=== PATIENT | female | born 1955 | race Caucasian/White ===

== ENCOUNTER 2020-10-30 13:41 | Outpatient (RCR) | payer MEDICARE, OTHER ==
[2020-11-01] MEDS ORDERED: LEVO175C2 PO (12:19)
[2020-11-01] MEDS ORDERED: ATOR20TA66 PO (12:20)
[2020-11-01] MEDS ORDERED: FLUO40CA PO (12:20)
[2020-11-01] MEDS ORDERED: LISI20TA26 PO (12:21)
[2020-11-01] MEDS ORDERED: OXYB5TAB13 PO (12:22)
[2020-11-02] MEDS ORDERED: METF-397 PO (12:46)
[2020-11-02] MEDS ORDERED: AMLO-251 PO (12:46)
[2020-11-02] MEDS ORDERED: ASPI-1238 PO (12:46)
[2020-11-02] MEDS ORDERED: ATOR80TA76 PO (12:46)
== END 2020-10-30 15:28 | disposition home or self-care (01) ==
PROVIDERS: ATTEND Orthopaedic Surgery
DX: Z47.89 Encounter for other orthopedic aftercare (principal); E11.9 Type 2 diabetes mellitus without complications; Z96.661 Presence of right artificial ankle joint

== ENCOUNTER 2020-11-01 06:22 | Observation (INO) | payer MEDICARE, OTHER ==
[2020-11-01] VITALS (9 sets, daily range): BP systolic 107–189; BP diastolic 83–115
[~2020-11-01] VITALS: Ht 165 cm; Wt 110.4 kg
--- NOTE | 2020-11-01 06:53 | ED Chest Pain ---
General Chief Complaint: Chest Pain Stated Complaint: STERNUM PAIN Source: patient Exam Limitations: no limitations History of Present Illness Date Seen by Provider: Nov 01, 2020 Time Seen by Provider: 06:35 Initial Comments Patient is a 65-year-old female who presents to the emergency department today with a chief complaint of midsternal/substernal chest pain. Patient states she woke up with the pain at approximately 545 this morning. She states she became nauseated with the pain and is currently rating it at a "8". Patient states that the pain did not radiate. She did not have shortness of breath or diaphoresis at the onset of the pain. She has never had anything like this before. Patient states that she has been out of her daily medications for about 2 weeks secondary to affordability. Patient states that she takes lisinopril for blood pressure as well as medications possibly for cholesterol and diabetes and thyroid issues. Patient states that she is down here in [facility] taking care of her ill mother. She states she was planning on going home and seeing her primary care physician on Tuesday or Tuesday. Patient denies any recent illnesses such as fevers chills, cough congestion or any Covid c omplaints. Patient is currently not nauseated. All other review of systems reviewed and negative except as stated. Timing/Duration: 1 hour Severity/Quality: moderate, aching Location: substernal Radiation: no radiation Activities at Onset: none, rest Prior CP/Workup: no prior chest pain, no prior cardiac workup ASA po PROJECT LEADER: No NTG SL PROJECT LEADER: No Associated Symptoms: nausea/vomiting Allergies and Home Medications Allergies Coded Allergies: No Known Drug Allergies (Unverified , 11/01/20) Home Medications Lisinopril 20 Mg Tablet, 20 MG PO DAILY, (Reported) Metformin HCl 500 Mg Tablet, 500 MG PO DAILY, (Reported) Oxybutynin Chloride 5 Mg Tablet, 5 MG PO BID, (Reported) Patient Home Medication List Home Medication List Reviewed: Yes Review of Systems Review of Systems Constitutional: see HPI EENTM: No Symptoms Reported Respiratory: No Symptoms Reported Cardiovascular: Chest Pain Gastrointestinal: Nausea Genitourinary: No Symptoms Reported Musculoskeletal: no symptoms reported Skin: no symptoms reported Psychiatric/Neurological: No Symptoms Reported All Other Systems Reviewed Negative Unless Noted: Yes Past Fuzvgsf-Rbuttt-Htttsl Hx Patient Social History Alcohol Use: Denies Use Smoking Status: Never a Smoker Recent Hopitalizations: No Seasonal Allergies Seasonal Allergies: No Past Medical History Surgeries: Yes Orthopedic Respiratory: No Cardiac: Yes High Cholesterol, Hypertension Neurological: No Genitourinary: No Gastrointestinal: No Musculoskeletal: No Endocrine: Yes Hypothyroidsim, Diabetes, Non-Insulin dep HEENT: No Cancer: No Psychosocial: No Integumentary: No Physical Exam Vital Signs Vital Signs - First Documented Capillary Refill : Less Than 3 Seconds Height, Weight, BMI Height: '" Weight: lbs. oz. kg; BMI Method: General Appearance: No Apparent Distress, WD/WN HEENT: PERRL/EOMI Neck: Normal Inspection Respiratory: Lungs Clear, Normal Breath Sounds, No Accessory Muscle Use, No Respiratory Distress Cardiovascular: Regular Rate, Rhythm, No Murmur Gastrointestinal: Normal Bowel Sounds, Soft, Tenderness (Patient had a little bit of tenderness on palpation of the right upper quadrant) Extremity: Normal Capillary Refill, Normal Inspection, Normal Range of Motion, Non Tender, No Pedal Edema Neurologic/Psychiatric: Alert, Oriented x3, No Motor/Sensory Deficits, Normal Mood/Affect, child care cook II-XII Norm as Tested Skin: Normal Color, Warm/Dry Progress/Results/Core Measures Results/Orders Lab Results Laboratory Tests Test 11/01/20 06:51 11/01/20 09:43 Range/Units White Blood Count 7.0 4.3-11.0 10^3/uL Red Blood Count 4.37 3.80-5.11 10^6/uL Hemoglobin 12.4 11.5-16.0 g/dL Hematocrit 39 35-52 % Mean Corpuscular Volume 89 80-99 fL Mean Corpuscular Hemoglobin 28 25-34 pg Mean Corpuscular Hemoglobin Concent 32 32-36 g/dL Red Cell Distribution Width 14.1 10.0-14.5 % Platelet Count 292 130-400 10^3/uL Mean Platelet Volume 10.5 9.0-12.2 fL Immature Granulocyte % (Auto) 0 % Neutrophils (%) (Auto) 63 42-75 % Lymphocytes (%) (Auto) 25 12-44 % Monocytes (%) (Auto) 7 0-12 % Eosinophils (%) (Auto) 3 0-10 % Basophils (%) (Auto) 1 0-10 % Neutrophils # (Auto) 4.5 1.8-7.8 10^3/uL Lymphocytes # (Auto) 1.8 1.0-4.0 10^3/uL Monocytes # (Auto) 0.5 0.0-1.0 10^3/uL Eosinophils # (Auto) 0.2 0.0-0.3 10^3/uL Basophils # (Auto) 0.1 0.0-0.1 10^3/uL Immature Granulocyte # (Auto) 0.0 0.0-0.1 10^3/uL Prothrombin Time 12.7 12.2-14.7 SEC INR Comment 0.9 0.8-1.4 Activated Partial Thromboplast Time 30 24-35 SEC Sodium Level 138 135-145 MMOL/L Potassium Level 4.1 3.6-5.0 MMOL/L Chloride Level 105 98-107 MMOL/L Carbon Dioxide Level 21 21-32 MMOL/L Anion Gap 12 5-14 MMOL/L Blood Urea Nitrogen 15 7-18 MG/DL Creatinine 1.14 0.60-1.30 MG/DL Estimat Glomerular Filtration Rate 48 BUN/Creatinine Ratio 13 Glucose Level 144 H 70-105 MG/DL Calcium Level 8.4 L 8.5-10.1 MG/DL Total Creatine Kinase 45 29-168 U/L Creatine Kinase MB 0.5 <6.6 NG/ML Troponin I < 0.028 < 0.028 <0.028 NG/ML My Orders Orders - ISAIAS NOVAK MD Cbc With Automated Diff (11/01/20 06:46) Basic Metabolic Panel (11/01/20 06:46) Creatine Kinase (11/01/20 06:46) Creatine Kinase Mb (11/01/20 06:46) Troponin I (11/01/20 06:46) Protime With Inr (11/01/20 06:46) Partial Thromboplastin Time (11/01/20 06:46) Ekg Tracing (11/01/20 06:46) Chest 1 View, Ap/Pa Only (11/01/20 06:46) Ed Iv/Invasive Line Start (11/01/20 06:46) Aspirin Chewable Tablet (Baby Aspirin Ch (11/01/20 09:00) Fentanyl Inj (Sublimaze Injection) (11/01/20 07:00) Ekg Tracing (11/01/20 07:38) Fentanyl Inj (Sublimaze Injection) (11/01/20 08:30) Troponin I (11/01/20 09:43) Furosemide Injection (Lasix Injection) (11/01/20 10:30) Potassium Chloride (Tablet) (Klor Con Ta (11/01/20 10:30) Amlodipine Tablet (Norvasc Tablet) (11/01/20 10:30) Medications Given in ED Vital Signs/I&O 11/01/20 11/01/20 06:44 06:44 Pulse 58 Resp 18 B/P (MAP) 189/106 (133) Pulse Ox 97 O2 Delivery Room Air Room Air Initial ECG Impression Date: Nov 01, 2020 Initial ECG Impression Time: 06:35 Initial ECG Rate: 58 Initial ECG Rhythm: Normal Sinus Initial ECG Intervals: Normal Initial ECG Impression: Nonspecific Changes Initial ECG Comparisson: No Previous ECG Available Comment NSSTW changes inferiorly and anteriorly EKG : EKG Time: 08:15 Rate: 51 Rhythm: Normal Sinus Intervals: Normal ECG Comparisson: Changed Comment t wave inversion inferior anterior with ST flattening Departure Communication (Admissions) Time/Spoke to Admitting Phy: 10:[address] An, asked that I consult cardiology Time/Spoke to Consulting Phy: 10:[address] Alonso on for cardiology. Recommended 40 mg of Lasix IV x1, 10 mEq of potassium p.o. and Norvasc 10 mg p.o. x1. He would like the patient admitted to cardiac stepdown floor and given a diet. Impression Primary Impression: Chest pain Qualified Codes: R07.9 - Chest pain, unspecified Additional Impressions: Hypertension Qualified Codes: I10 - Essential (primary) hypertension Congestive heart failure Qualified Codes: I50.9 - Heart failure, unspecified Disposition: ADMITTED INPATIENT Condition: Stable Admissions Decision to Admit Reason: Admit from ER (General) Decision to Admit/Date: Nov 01, 2020 Time/Decision to Admit Time: 10:33 Departure-Patient Inst. Referrals: NANNETTE VO DO (PCP) Primary Care Physician ISAIAS NOVAK MD Nov 01, 2020 06:53
[2020-11-01] MEDS ORDERED: fentaNYL INJ 100 MCG/2 ML AMP IVP ONE ×2 (07:00→08:30)
[2020-11-01 07:06] LABS: BASOPHILS # (AUTO) 0.1 10^3/uL (0.0-0.1); BASOPHILS % (AUTO) 1 % (0-10); EOSINOPHILS # (AUTO) 0.2 10^3/uL (0.0-0.3); EOSINOPHILS % (AUTO) 3 % (0-10); HEMATOCRIT 39 % (35-52); HEMOGLOBIN 12.4 g/dL (11.5-16.0); LYMPHOCYTES # (AUTO) 1.8 10^3/uL (1.0-4.0); LYMPHOCYTES % (AUTO) 25 % (12-44); MEAN CORPUSCULAR HEMOGLOBIN 28 pg (25-34); MEAN CORPUSCULAR HGB CONC 32 g/dL (32-36); MEAN CORPUSCULAR VOLUME 89 fL (80-99); MEAN PLATELET VOLUME 10.5 fL (9.0-12.2); MONOCYTES # (AUTO) 0.5 10^3/uL (0.0-1.0); MONOCYTES % (AUTO) 7 % (0-12); NEUTROPHILS # (AUTO) 4.5 10^3/uL (1.8-7.8); NEUTROPHILS % (AUTO) 63 % (42-75); PLATELET COUNT 292 10^3/uL (130-400)
[2020-11-01 07:11] LABS: INR 0.9 (0.8-1.4); PROTHROMBIN TIME PATIENT 12.7 SEC (12.2-14.7)
[2020-11-01 07:17] LABS: BUN/CREATININE RATIO 13; CALCIUM 8.4 MG/DL (8.5-10.1); CARBON DIOXIDE 21 MMOL/L (21-32); CHLORIDE 105 MMOL/L (98-107); CREATINE KINASE 45 U/L (29-168); CREATININE SERUM 1.14 MG/DL (0.60-1.30); GFR ESTIMATED 48; GLUCOSE 144 MG/DL (70-105); POTASSIUM 4.1 MMOL/L (3.6-5.0); SODIUM 138 MMOL/L (135-145)
[2020-11-01 07:23] LABS: CREATINE KINASE MB 0.5 NG/ML (<6.6)
--- NOTE | 2020-11-01 08:17 | Diagnostic Imaging Report ---
EXAMINATION: Chest 1 view HISTORY: Chest pain. COMPARISON: None available. FINDINGS: The heart size is enlarged with central pulmonary vascular congestion. Patchy opacities are seen in the mid and lower lungs bilaterally. No large pleural effusion or pneumothorax. No acute osseous abnormalities. IMPRESSION: 1. Cardiomegaly with central pulmonary vascular congestion. Patchy opacities in the mid and lower lungs bilaterally may represent edema or infection. No large pleural effusion. Dictated by: Dictated on workstation # [id number]
[2020-11-01] MEDS ORDERED: ASPIRIN 81 MG CHEW (CHILDREN'S ASA) PO SCH (09:00)
[2020-11-01] MEDS ORDERED: KCL 10 MEQ TAB (MICRO K) PO ONE (10:30)
[2020-11-01] MEDS ORDERED: amLODIPine 10 MG (NORVASC) TAB PO ONE (10:30)
[2020-11-01] MEDS ORDERED: FUROSEMIDE 40 MG/4 ML INJ (LASIX) IVP ONE (10:30)
[2020-11-01] MEDS ORDERED: ONDANSETRON 4 MG/2 ML (SDV) Z0FRAN IV PRN (11:45)
[2020-11-01] MEDS ORDERED: LEVO175C2 PO ×2 (12:19)
[2020-11-01] MEDS ORDERED: ATOR20TA66 PO ×2 (12:20)
[2020-11-01] MEDS ORDERED: FLUO40CA PO ×2 (12:20)
[2020-11-01] MEDS ORDERED: LISI20TA26 PO ×2 (12:21)
[2020-11-01] MEDS ORDERED: METF-397 PO (12:22)
[2020-11-01] MEDS ORDERED: OXYB5TAB13 PO ×2 (12:22)
--- NOTE | 2020-11-01 13:15 | Consultation-Cardiology ---
HPI-Cardiology Cardiology Consultation: Date of Consultation 11/01/20 Time Seen by a Provider: 12:50 Date of Admission Attending Physician Urvashi An MD Admitting Physician Irina Reaves DO Consulting Physician ONIEL RUDOLPH MD, MA, FACP, FACC, FSCAI, CCDS HPI: Chief Complaint: CC: Chest discomfort HPI 65 yo woman who awoke with epigastric / lower midsternal pain, localized to a small area, sharp to dull, continuous for 1/2 - 1 hour, w/o radiation, w/o associated symptoms, never experienced before, mod in intensity, w/o aggravating or relieving factors. Denies shortness of breath or palp or syncope or swelling. Denies fever or chills. States quit taking bp meds several days ago. Review of Systems-Cardiology Review of Systems Constitutional: No weight loss, No weight gain Eyes: No vision change Ears/Nose/Throat: No ear discharge, No nasal drainage, No recent hearing loss Respiratory: As described under HPI Cardiovascular: As described under HPI Gastrointestinal: No diarrhea, No nausea, No vomiting Genitourinary: No dysuria, No hematuria, No urine frequency changes Musculoskeletal: No back pain, No joint pain Skin: No rash, No ulcerations Psychiatric/Neurological: No seizure, No focal weakness, No syncope Hematologic: No bleeding abnormalities All Other Systems Reviewed Negative Unless Noted: Yes AZU-Bsbyho-Ywibvu Hx Patient Social History Smoking Status: Never a Smoker Have you traveled recently?: No Alcohol Use?: Yes Pt feels they are or have been: No Immunizations Up To Date Date of Influenza Vaccine: Jul 04, 2020 Past Medical History PMH As described under Assessment. Family Medical History Family Medical History: Does not report fam h/o early CAD or SCD Allergies and Home Medications Allergies Coded Allergies: No Known Drug Allergies (Unverified , 11/01/20) Home Medications Lisinopril 20 Mg Tablet, 20 MG PO DAILY, (Reported) Metformin HCl 500 Mg Tablet, 500 MG PO DAILY, (Reported) Oxybutynin Chloride 5 Mg Tablet, 5 MG PO BID, (Reported) Patient Home Medication List Home Medication List Reviewed: Yes Physical Exam-Cardiology Physical Exam Vital Signs/I&O 11/01/20 11/01/20 11/01/20 11/01/20 06:44 06:44 11:30 11:35 Temp 36.8 Pulse 58 53 Resp 18 17 B/P (MAP) 189/106 (133) 147/113 Pulse Ox 97 97 O2 Delivery Room Air Room Air Room Air 11/01/20 11/01/20 12:30 12:38 Pulse 58 Pulse Ox 98 O2 Delivery Room Air Capillary Refill : Less Than 3 Seconds Constitutional: AAO x 3, well-developed, well-nourished HEENT: EOMI, hearing is well preserved; No xanthelasmas are seen Neck: carotid pulses are 2 + bilaterally, with good upstrokes Respiratory: No accessory muscle use; other (good bilateral air entry) Cardiovascular: regular rate-rhythm, S1 and S2, systolic murmur (faint YAA at card base) Gastrointestinal: No tender; soft; No guarding, No rebound; audible bowel sounds Extremities: No clubbing, No cyanosis, No significant edema Neurologic/Psychiatric: oriented x 3, other (moves all limbs equally) Skin: No rash, No ulcerations Data Review Labs Laboratory Tests 11/01/20 06:51: White Blood Count 7.0, Red Blood Count 4.37, Hemoglobin 12.4, Hematocrit 39, Mean Corpuscular Volume 89, Mean Corpuscular Hemoglobin 28, Mean Corpuscular Hemoglobin Concent 32, Red Cell Distribution Width 14.1, Platelet Count 292, M govind Platelet Volume 10.5, Immature Granulocyte % (Auto) 0, Neutrophils (%) (Auto) 63, Lymphocytes (%) (Auto) 25, Monocytes (%) (Auto) 7, Eosinophils (%) (Auto) 3, Basophils (%) (Auto) 1, Neutrophils # (Auto) 4.5, Lymphocytes # (Auto) 1.8, Monocytes # (Auto) 0.5, Eosinophils # (Auto) 0.2, Basophils # (Auto) 0.1, Immature Granulocyte # (Auto) 0.0, Prothrombin Time 12.7, INR Comment 0.9, Activated Partial Thromboplast Time 30, Sodium Level 138, Potassium Level 4.1, Chloride Level 105, Carbon Dioxide Level 21, Anion Gap 12, Blood Urea Nitrogen 15, Creatinine 1.14, Estimat Glomerular Filtration Rate 48, BUN/Creatinine Ratio 13, Glucose Level 144H, Calcium Level 8.4L, Total Creatine Kinase 45, Creatine Kinase MB 0.5, Troponin I < 0.028 11/01/20 09:43: Troponin I < 0.028 Laboratory Tests 11/01/20 06:51 A/P-Cardiology Assessment/Admission Diagnosis Chest discomfort of undetermined etiology Hypertension Sinus wolf Noncompliance with meds Elevated BMI of approx 41 Discussion and Recomendations * ASA * Amlodipine for bp * Not suitable for beta-gali because of sinus wolf * Echo * Advised compliance with meds Clinical Quality Measures AMI/AHF: ASA po Prior to arrival: ONIEL Oliver MD FACP [facility] Nov 01, 2020 13:15
--- NOTE | 2020-11-01 13:17 | History & Physical-Hospitalist ---
History of Present Illness HPI/Chief Complaint Otiila Anders is a 65-year-old female with past medical history of hypertension, diabetes, hyperlipidemia, morbid obesity, who presented with chest pain. She reports that the pain was in the center of her chest and did not radiate. She denies any associated shortness of breath or nausea. She denies any diaphoresis. She has not ever had any pain like this before. She has no history of coronary artery disease. She does not smoke, drink alcohol, or use illicit drugs. She is not from the area and is visiting because she has helping her mother. She has not been taking her medications for the past few weeks due to insurance and affordability issues. Source: patient Exam Limitations: no limitations Date Seen 11/01/20 Time Seen by a Provider: 13:05 Attending Physician Marline An MD PCP Irina Reaves DO Referring Physician Date of Admission Nov 01, 2020 at 10:36 Home Medications & Allergies Home Medications Reviewed patient Home Medication Reconciliation performed by pharmacy medication reconciliations electrical electronics technician and/or nursing. Patients Allergies have been reviewed. Allergies Allergies Coded Allergies No Known Drug Allergies (Unverified11/01/20) Past Fhkdmmt-Exjgab-Fvrvbn Hx Past Med/Social Hx: Reviewed Nursing Past Med/Soc Hx Patient Social History Alcohol Use: Denies Use Recreational Drug Use: No Smoking Status: Never a Smoker Recent Foreign Travel: No Contact w/other who traveled: No Recent Hopitalizations: No Recent Infectious Disease Expo: No Immunizations Up To Date Date of Influenza Vaccine: Jul 04, 2020 Seasonal Allergies Seasonal Allergies: No Past Medical History Surgeries: Orthopedic Cardiac: High Cholesterol, Hypertension Endocrine: Hypothyroidsim, Diabetes, Non-Insulin dep Review of Systems Constitutional: no symptoms reported EENTM: no symptoms reported Respiratory: no symptoms reported Cardiovascular: chest pain Gastrointestinal: no symptoms reported Genitourinary: no symptoms reported Musculoskeletal: no symptoms reported Skin: no symptoms reported Psychiatric/Neurological: No Symptoms Reported Physical Exam Physical Exam Vital Signs Vital Signs - First Documented 11/01/20 15:03 FiO2 21 Capillary Refill : Less Than 3 Seconds Height, Weight, BMI Height: '" Weight: lbs. oz. kg; 40.55 BMI Method: General Appearance: No Apparent Distress, Obese HEENT: PERRL/EOMI, Pharynx Normal Neck: Normal Inspection, Supple Respiratory: Lungs Clear, Normal Breath Sounds, No Respiratory Distress Cardiovascular: Regular Rate, Rhythm, No Edema, No Murmur Gastrointestinal: Normal Bowel Sounds, Non Tender, Soft Extremity: Normal Inspection, Non Tender, No Pedal Edema Neurologic/Psychiatric: Alert, Oriented x3, No Motor/Sensory Deficits, Normal Mood/Affect Skin: Normal Color, Warm/Dry Results Results/Procedures Labs Laboratory Tests 11/01/20 06:51 Patient resulted labs reviewed. Imaging: Reviewed Imaging Report Assessment/Plan Admission Diagnosis Chest pain Admission Status: Observation Assessment and Plan Chest pain EKG unremarkable Troponin negative Cardiology consutled, appreciate assistance Trend troponins Check echo Begin ASA Check lipid panel HTN Begin Amlodpine T2DM Begin Metformin HLD Checking lipid panel Obesity PROMISE Clinically significant, no acute management needs Wears CPAP at night DVT prophylaxis: Lovenox Diagnosis/Problems Diagnosis/Problems (1) Chest pain Status: Acute Qualifiers: Chest pain type: unspecified Qualified Codes: R07.9 - Chest pain, unspecified Clinical Quality Measures AMI/AHF: ASA po Prior to arrival: MARLINE Morillo MD Nov 01, 2020 13:17
[2020-11-01] MEDS ORDERED: ENOXAPARIN 40 MG/0.4 ML (LOVENOX) SYR SC SCH (14:00)
[2020-11-01] MEDS ORDERED: hydrALAZINE (APRESOLINE) 25 MG TAB PO SCH (14:00)
[2020-11-01] MEDS ORDERED: RT-ALBUTEROL SULF 2.5 MG/3 ML PRE-MIX VIAL INH PRN (15:15)
[2020-11-01] MEDS ORDERED: morphine INJ 4 MG/ML 1 ML (VIAL/SYRINGE) IV PRN (20:45)
[2020-11-01] MEDS ORDERED: CATHETER FLUSH 10 ML SYR IV PRN (20:45)
[2020-11-01] MEDS: CATHETER FLUSH 10 ML SYR IV SCH (23:52)
[2020-11-02] VITALS: BP 131/78
[2020-11-02 03:39] LABS: TRIGLYCERIDES 352 MG/DL (<150); VLDL CHOLESTEROL 70 MG/DL (5-40)
[2020-11-02 03:44] LABS: CHOLESTEROL 260 MG/DL (< 200)
[2020-11-02 03:45] LABS: HDL CHOLESTEROL 50 MG/DL (40-60)
[2020-11-02 04:00] VITALS: BP 144/82
[2020-11-02] MEDS: CATHETER FLUSH 10 ML SYR IV SCH (05:52)
[2020-11-02 07:32] VITALS: BP 149/86
[2020-11-02] MEDS ORDERED: metFORMIN 500 MG (GLUCOPHAGE) TAB PO ONE (08:30)
[2020-11-02] MEDS ORDERED: ASPIRIN E.C. 81 MG (ECOTRIN) TAB PO SCH (09:00)
[2020-11-02] MEDS ORDERED: amLODIPine 10 MG (NORVASC) TAB PO SCH (09:00)
--- NOTE | 2020-11-02 10:47 | Progress Note - Hospitalist ---
Subjective HPI/CC On Admission Date Seen by Provider: Nov 02, 2020 Time Seen by Provider: 10:20 Subjective/Events-last exam She is not having any chest pain. She denies any shortness of breath. She has been eating and drinking. She has been up and moving around. She has no complaints or concerns. Objective Exam Vital Signs Vital Signs Date Time Temp Pulse Resp B/P (MAP) Pulse Ox O2 Delivery O2 Flow Rate FiO2 11/02/20 08:12 93 Room Air 11/02/20 07:32 36.4 73 22 149/86 (107) 11/01/20 15:03 21 Capillary Refill : Less Than 3 Seconds General Appearance: No Apparent Distress, Obese Respiratory: Lungs Clear, Normal Breath Sounds, No Respiratory Distress Cardiovascular: Regular Rate, Rhythm, No Edema, No Murmur Gastrointestinal: Normal Bowel Sounds, Non Tender, Soft Extremity: Normal Inspection, Non Tender, No Pedal Edema Neurologic/Psychiatric: Alert, Oriented x3, No Motor/Sensory Deficits, Normal Mood/Affect Skin: Normal Color, Warm/Dry Results/Procedures Lab Patient resulted labs reviewed. Assessment/Plan Assessment and Plan Assess & Plan/Chief Complaint Chest pain Cardiology consutled, appreciate assistance EKG unremarkable Troponin remains negative Echo results pending Continue ASA HTN Continue Amlodpine T2DM Continue Metformin HLD LDL, vLDL, triglycerides elevated Begin Lipitor Morbid obesity PROMISE Clinically significant, no acute management needs Wears CPAP at night DVT prophylaxis: Lovenox Diagnosis/Problems Diagnosis/Problems (1) Chest pain Status: Acute Qualifiers: Chest pain type: unspecified Qualified Codes: R07.9 - Chest pain, unspecified (2) Hypertension Status: Acute Qualifiers: Hypertension type: essential hypertension Qualified Codes: I10 - Essential (primary) hypertension (3) T2DM (type 2 diabetes mellitus) Status: Chronic (4) HLD (hyperlipidemia) Status: Acute (5) PROMISE (obstructive sleep apnea) Status: Chronic (6) Morbid obesity Status: Chronic Clinical Quality Measures AMI/AHF: ASA po Prior to arrival: MARLINE oMrillo MD Nov 02, 2020 10:47
[2020-11-02 11:15] VITALS: BP 134/87
[2020-11-02] MEDS ORDERED: ASPI-1238 PO ×2 (12:46)
[2020-11-02] MEDS ORDERED: AMLO-251 PO ×2 (12:46)
[2020-11-02] MEDS ORDERED: ATOR80TA76 PO ×2 (12:46)
[2020-11-02] MEDS ORDERED: METF-397 PO ×2 (12:46)
--- NOTE | 2020-11-02 12:52 | Discharge Summary ---
Discharge Summary Hospital Course Was the Problem List Reviewed?: Yes Problems/Dx: (1) Chest pain Status: Acute Qualifiers: Qualified Codes: R07.9 - Chest pain, unspecified (2) Hypertension Status: Acute Qualifiers: Qualified Codes: I10 - Essential (primary) hypertension (3) T2DM (type 2 diabetes mellitus) Status: Chronic (4) HLD (hyperlipidemia) Status: Acute (5) PROMISE (obstructive sleep apnea) Status: Chronic (6) Morbid obesity Status: Chronic Hospital Course Date of Admission: Nov 01, 2020 at 10:36 Admission Diagnosis : Chest pain Family Physician/Provider: Irina Reaves DO Date of Discharge: 11/02/20 Discharge Diagnosis: Chest pain Hospital Course: Otilia Anders is a 65 year old female with PMH HTN, HLD, T2DM, PROMISE on CPAP, morbid obesity, who presented with chest pain. Her EKG and troponins remained normal. Cardiology was consulted and assisted with her care. She was set up for a stress test as an outpatient. She had been non-adherant to her medication regimen due to insurance and affordability issues. She was sent in new prescriptions to [facility]. She should follow up with her PCP in a couple weeks. Labs and Pending Lab Test: Laboratory Tests 11/01/20 16:03: Troponin I < 0.028 11/01/20 16:25: Glucometer 168H 11/02/20 03:00: Triglycerides Level 352H, Cholesterol Level 260H, LDL Cholesterol Direct 183H, VLDL Cholesterol 70H, HDL Cholesterol 50 11/02/20 10:19: Glucometer 106 Home Meds Active Aspirin EC (Aspirin) 81 Mg Tablet.dr 81 Mg PO DAILY 30 Days Amlodipine Besylate 10 Mg Tablet 10 Mg PO DAILY 30 Days Atorvastatin Calcium 80 Mg Tablet 80 Mg PO HS 30 Days Metformin HCl 500 Mg Tablet 500 Mg PO DAILY 30 Days Reported Oxybutynin Chloride 5 Mg Tablet 5 Mg PO BID Lisinopril 20 Mg Tablet 20 Mg PO DAILY Fluoxetine HCl 40 Mg Capsule 40 Mg PO Atorvastatin Calcium 20 Mg Tablet 20 Mg PO Levothyroxine (Levothyroxine Sodium) 175 Mcg Capsule 175 Mcg PO Assessment/Pt Instructions Take medications as prescribed. Follow up for your stress test as scheduled. Follow up with your PCP. Return with worsening chest pain, shortness of breath, or if you feel like you are getting worse. Discharge Planning: <30 minutes discharge planning Discharge Instructions Discharge Diet: Low Sodium Diet Activity as Tolerated: Yes Consultations Cardiology Discharge Physical Examination Vital Signs Vital Signs Date Time Temp Pulse Resp B/P (MAP) Pulse Ox O2 Delivery O2 Flow Rate FiO2 11/02/20 11:15 36.2 60 14 134/87 (103) 98 Room Air 11/01/20 15:03 21 Allergies: Coded Allergies: latex (Unverified Allergy, Unknown, Itching, 11/02/20) Discharge Summary Date of Admission Nov 01, 2020 at 10:36 Date of Discharge Discharge Date: Nov 02, 2020 Discharge Time: 12:51 Admission Diagnosis Chest pain Consults/Procedures Consulations Cardiology Discharge Diagnosis Chest pain (1) Chest pain Status: Acute Qualifiers: Qualified Codes: R07.9 - Chest pain, unspecified (2) Hypertension Status: Acute Qualifiers: Qualified Codes: I10 - Essential (primary) hypertension (3) T2DM (type 2 diabetes mellitus) Status: Chronic (4) HLD (hyperlipidemia) Status: Acute (5) PROMISE (obstructive sleep apnea) Status: Chronic (6) Morbid obesity Status: Chronic Clinical Quality Measures AMI/AHF: ASA po Prior to arrival: MARLINE Morillo MD Nov 02, 2020 12:52
[2020-11-02 13:09] VITALS: BP 134/87
--- NOTE | 2020-11-02 13:49 | Progress Note - Cardiology ---
Cardiology SOAP Progress Note Subjective: No cp or shortness of breath No palp or syncope or swelling No n/v/d Denies malaise or weakness Objective: I&O/Vital Signs 11/02/20 11/02/20 11/02/20 11/02/20 04:00 07:00 07:32 07:38 Temp 36.8 36.4 Pulse 71 70 73 Resp 14 22 B/P (MAP) 144/82 (102) 149/86 (107) Pulse Ox 97 96 96 O2 Delivery Room Air Room Air Room Air 11/02/20 11/02/20 11/02/20 08:12 11:15 13:09 Temp 36.2 36.2 Pulse 60 60 Resp 14 14 B/P (MAP) 134/87 (103) 134/87 Pulse Ox 93 98 98 O2 Delivery Room Air Room Air Room Air 11/02/20 00:00 Intake Total 1000 ml Output Total 1675 ml Balance -675 ml Constitutional: AAO x 3, well-developed, well-nourished Respiratory: No accessory muscle use; other (good bilateral air entry) Cardiovascular: regular rate-rhythm, S1 and S2, systolic murmur (faint YAA at card base) Gastrointestional: No tender; soft; No guarding, No rebound; audible bowel sounds Extremities: No clubbing, No cyanosis, No significant edema Neurologic/Psychiatric: oriented x 3, other (moves all limbs equally) Skin: No rash, No ulcerations Results/Procedures: Labs Laboratory Tests 11/01/20 16:03: Troponin I < 0.028 11/01/20 16:25: Glucometer 168H 11/02/20 03:00: Triglycerides Level 352H, Cholesterol Level 260H, LDL Cholesterol Direct 183H, VLDL Cholesterol 70H, HDL Cholesterol 50 11/02/20 10:19: Glucometer 106 Laboratory Tests 11/01/20 06:51 A/P: Assessment: Chest discomfort of undetermined etiology, no evidence of ACS Hypertension Sinus wolf Noncompliance with meds Elevated BMI of approx 41 Echo of 11/03/19: LVEF 55-60%, mild enlargement of LA, grade I diastolic dysfunction Plan: * Contininue antihypertensive regimen * Advised compliance with meds * Advised cor risk strat. She does not want to stay in the hosp any longer. States will have it done as an outpt * Risk factor mod reviewed and outpt f/u advised Clinical Quality Measures AMI/AHF: ASA po Prior to arrival: ONIEL Oliver MD FACP FAC CCDS Nov 02, 2020 13:49
[2020-11-03] MEDS ORDERED: metFORMIN 500 MG (GLUCOPHAGE) TAB PO SCH (07:00)
== END 2020-11-02 12:46 | disposition home or self-care (01) ==
LOC: EDUNIT# 06:22 → ER 06:24 → CSD 10:36 → UNDOADMOB 10:36 → CSD 11:30 → UNDODISOB 11-02 13:08
PROVIDERS: ADMIT Internal Medicine; ATTEND Internal Medicine
DX: R07.89 Other chest pain (principal); E11.9 Type 2 diabetes mellitus without complications; I50.9 Heart failure, unspecified; I11.0 Hypertensive heart disease with heart failure; E78.00 Pure hypercholesterolemia, unspecified; R00.1 Bradycardia, unspecified; E66.01 Morbid (severe) obesity due to excess calories; E03.9 Hypothyroidism, unspecified; G47.33 Obstructive sleep apnea (adult) (pediatric); Z79.84 Long term (current) use of oral hypoglycemic drugs; Z79.899 Other long term (current) drug therapy; Z91.19 Patient's noncompliance with other medical treatment and regimen; Z99.89 Dependence on other enabling machines and devices; Z68.41 Body mass index [BMI] 40.0-44.9, adult
CPT/HCPCS: 71045; 80048; 80061; 82550; 82553; 82962 ×2; 84484; 85025; 85610; 85730; 93005 ×2; 93306; 99284; G0378; 36415; 96374; 96375; 96376

== ENCOUNTER → 2020-11-03 | Outpatient (CLI) | payer MEDICARE, OTHER ==
[~2020-11-03] VITALS: Ht 162 cm; Wt 114.0 kg
[~2020-11-03] MED LIST: AMLO-251 PO; ASPI-1238 PO; ATOR20TA66 PO; ATOR80TA76 PO; CATHETER FLUSH 10 ML SYR IV PRN; FLUO40CA PO; LEVO175C2 PO; LISI20TA26 PO; METF-397 PO; OXYB5TAB13 PO; REGADENOSON 0.4 MG/5 ML SYR (LEXISCAN) IV ONE
[2020-11-03 08:25] VITALS: BP 159/83
== END ==
LOC: CARD 07:15
PROVIDERS: ATTEND Internal Medicine
DX: I50.9 Heart failure, unspecified (principal)
CPT/HCPCS: 78452; 93017; A9502

== ENCOUNTER → 2021-04-01 | Outpatient (CLI) | payer MEDICARE, OTHER ==
[~2021-04-01] MED LIST changes: -CATHETER FLUSH 10 ML SYR IV PRN; -REGADENOSON 0.4 MG/5 ML SYR (LEXISCAN) IV ONE
[2021-04-01 14:04] LABS: CHOLESTEROL 160 MG/DL (< 200); HDL CHOLESTEROL 54 MG/DL (40-60); TRIGLYCERIDES 213 MG/DL (<150); VLDL CHOLESTEROL 43 MG/DL (5-40)
== END ==
LOC: LAB 13:25
PROVIDERS: ATTEND Internal Medicine Cardiovascular Disease
DX: E78.49 Other hyperlipidemia (principal)
CPT/HCPCS: 36415; 80061

== ENCOUNTER → 2021-10-02 | Outpatient (CLI) | payer MEDICARE, OTHER ==
--- NOTE | 2021-10-02 13:30 | Diagnostic Imaging Report ---
EXAMINATION: Lumbar spine radiographs, 3 views. COMPARISON: None. HISTORY: 66-year-old female, low back pain. FINDINGS: There are 5 lumbar-type vertebral bodies. There is approximately 50% height loss of the L5 vertebral body. There is moderate to severe disc height loss at L1-L2 and L2-L3. There are endplate degenerative changes. There are mild bilateral facet degenerative changes at L5-S1. The sacroiliac joints are unremarkable in appearance. IMPRESSION: 1. 50% height loss at the L5 vertebral body which may relate to an age-indeterminate compression deformity. 2. Disc degenerative changes of the lumbar spine most notable at L1-L2 and L2-L3. 3. Bilateral facet degenerative changes at L5-S1. Dictated by: Dictated on workstation # [id number]
== END ==
LOC: RAD 11:21
DX: M47.817 Spondylosis without myelopathy or radiculopathy, lumbosacral region (principal); M51.36 Other intervertebral disc degeneration, lumbar region
CPT/HCPCS: 72100

== ENCOUNTER → 2021-11-12 | Outpatient (CLI) | payer MEDICARE, OTHER ==
--- NOTE | 2021-11-12 14:41 | Diagnostic Imaging Report ---
PROCEDURE: MRI lumbar spine. TECHNIQUE: Multiplanar, multisequence MRI of the lumbar spine was performed without contrast. DATE: November 12, 2021. COMPARISON: Lumbar spine radiographs October 02, 2021. INDICATION: 66-year-old female, low back pain. FINDINGS: There is a chronic compression deformity of L5 with approximately 60% height loss. There is a superior endplate concavity of L4 which may relate to a Schmorl's node or a prior compression deformity. There is a benign L3 vertebral body hemangioma. There is no acute compression fracture or other acute fracture. There is no focal concerning bone lesion. Is no evidence of a diffuse marrow infiltrating or replacing process. The visualized cord and conus medullaris is unremarkable and terminates at the T12-L1 level. There is severe disc height loss at L1-L2 and L2-L3 with adjacent Modic endplate degenerative related changes. There is mild disc height loss at L3-L4, L4-L5, and L5-S1. There are small posterior disc protrusions of the lower thoracic spine without associated spinal stenosis. There are T2 hyperintense subcentimeter right renal lesions not well characterized on noncontrast MRI. L1-L2: There is mild diffuse disc bulge with a superimposed small right paracentral disc protrusion without nerve root contact. The facet joints and ligamentum flavum are unremarkable. There is no foraminal narrowing. There is no spinal canal stenosis. L2-L3: There is diffuse disc bulge eccentric to the left. There are left facet degenerative changes. There is a periarticular cysts adjacent to the left facet articulation extending towards this thecal sac measuring 6 x 6 mm in size. There is moderate left foraminal narrowing. There is moderate to severe narrowing of the left lateral recess and mild narrowing of the right lateral recess. There is moderate to severe spinal canal stenosis. L3-L4: There is no disc bulge. There are bilateral facet degenerative changes without ligamentum flavum hypertrophy. There is no foraminal narrowing. There is no spinal canal stenosis. L4-L5: There is diffuse disc bulge. There is severe bilateral facet degenerative changes with ligamentum flavum hypertrophy. There is severe narrowing of the bilateral lateral recesses. There is mild bilateral foraminal narrowing. There is severe spinal canal stenosis. L5-S1: There is mild diffuse disc bulge. There are advanced bilateral facet degenerative changes without prominent ligamentum flavum hypertrophy. There is no foraminal narrowing. There is moderate to severe narrowing of the right lateral recess. There is no spinal canal stenosis. IMPRESSION: 1. Multilevel disc and facet degenerative changes of the thoracolumbar spine as described in detail level by level above. 2. Remote prior compression deformity of L5 and potential remote prior compression deformity of L4. No acute compression fracture or other fracture. Dictated by: Dictated on workstation # [id number]
== END ==
LOC: RAD 13:15
PROVIDERS: ATTEND Nurse Practitioner Family
DX: M47.816 Spondylosis without myelopathy or radiculopathy, lumbar region (principal); M47.817 Spondylosis without myelopathy or radiculopathy, lumbosacral region; M51.26 Other intervertebral disc displacement, lumbar region; M51.27 Other intervertebral disc displacement, lumbosacral region; M48.061 Spinal stenosis, lumbar region without neurogenic claudication; M48.07 Spinal stenosis, lumbosacral region; M43.8X6 Other specified deforming dorsopathies, lumbar region
CPT/HCPCS: 72148

== ENCOUNTER → 2021-11-17 | Outpatient (CLI) | payer MEDICARE, OTHER | LOC: RAD 13:30 | PROVIDERS: ATTEND Nurse Practitioner Family | DX: Z12.31 Encounter for screening mammogram for malignant neoplasm of breast (principal) | CPT/HCPCS: 77063; 77067 ==

== ENCOUNTER → 2021-12-01 | Outpatient (CLI) | payer MEDICARE, OTHER ==
--- NOTE | 2021-12-01 16:47 | Diagnostic Imaging Report ---
INDICATION: Asymptomatic postmenopausal female. COMPARISON: None. FINDINGS: AP Spine L1-L4: [BMD (g/cm2): 1.202] [T-Score: 0.0] [Z-Score: 0.5] [BMD Previous: NA] [BMD % Change: NA] LT Hip Neck: [BMD (g/cm2): 0.752] [T-Score: -2.1] [Z-Score: -1.2] LT Hip Total: [BMD (g/cm2):0.853] [T-Score:-1.2] [Z-Score: -0.7] [BMD Previous: NA] [BMD % Change: NA] RT Hip Neck: [BMD (g/cm2):0.692] [T-Score:-2.5] [Z-Score:-1.6] RT Hip Total: [BMD (g/cm2):0.792] [T-score:-1.7] [Z-Score:-1.2] [BMD Previous:NA] [BMD % Change:NA] *Indicates significant change from prior examination based on 95% confidence level. World Health Organization criteria for BMD interpretation classify patients as Normal (T-score at or above -1.0), Osteopenic (T-score between -1.0 and -2.5) or Osteoporotic (T-score at or below -2.5). LIMITATIONS AND MODIFICATION: None. FRACTURE RISK (FRAX SCORE): The ten year probability of (%): Major Osteoporotic Fracture: [NA] Hip Fracture: [NA] IMPRESSION: 1. Osteoporosis. 2. Baseline examination. 3. See below National Osteoporosis Foundation guidelines on when to potentially initiate pharmacologic therapy. Based on the National Osteoporosis Foundation Guidelines, pharmacologic treatment should be initiated in any of the following, unless clinical conditions suggest otherwise: * Any patient with prior fragility fracture of the hip or vertebrae. A spine fracture indicates 5X risk for subsequent spine fracture and 2X risk for subsequent hip fracture. * Osteoporosis (T-score <-2.5). * Postmenopausal women and men age 50 and older with low bone mass/osteopenia (T-score between -1.0 and -2.5) by DXA and 10-year major osteoporotic fracture greater than 20% or a 10-year probability of hip fracture greater than 3%. These fracture risks are supplied above in the FRAX score, if applicable. * Clinician judgement and/or patient preferences may indicate treatment for people with 10-year fracture probabilities above or below these levels. Dictated by: Dictated on workstation # [id number]
== END ==
LOC: RAD 14:30
PROVIDERS: ATTEND Nurse Practitioner Family
DX: Z13.820 Encounter for screening for osteoporosis (principal); M81.0 Age-related osteoporosis without current pathological fracture; Z78.0 Asymptomatic menopausal state
CPT/HCPCS: 77080